=== PATIENT | male | born 1990 | race Caucasian/White ===

== ENCOUNTER 2017-06-21 19:32 | Emergency (ER) | payer SELFPAY ==
[2017-06-21] MEDS ORDERED: EPINEPHrine 1 MG/ML SDV IM ONE (19:42)
[2017-06-21] MEDS ORDERED: methylPREDNISolone Sodium Succinate 125 MG/2 ML SDV IVPUSH ONE (19:42)
--- NOTE | 2017-06-21 19:45 | EDM.PDOC ---
ED HPI GENERAL MEDICAL PROBLEM - General Chief Complaint: Allergic Reaction Stated Complaint: ALLERGIC REACTION BEE STING Time Seen by Provider: 06/21/17 19:42 - History of Present Illness INITIAL COMMENTS - FREE TEXT/NARRATIVE: HISTORY AND PHYSICAL: History of present illness: Patient 26-year-old male presents with a concern of acute allergic reaction secondary to bee sting he has periorbital edema and swelling of his lips and midface is no difficulty breathing difficulty swallowing no changes in his voice. He took Benadryl prior to arrival Review of systems: As per history of present illness and below otherwise all systems reviewed and negative. Past medical history: As per history of present illness and as reviewed below otherwise noncontributory. Surgical history: As per history of present illness and as reviewed below otherwise noncontributory. Social history: No reported history of drug or alcohol abuse. Family history: As per history of present illness and as reviewed below otherwise noncontributory. Physical exam: HEENT: Patient has moderate periorbital edema and swelling of his mid face and upper lip. There is no tongue swelling oropharynx is normal, normocephalic, pupils reactive, negative for conjunctival pallor or scleral icterus, mucous membranes moist, throat clear, neck supple, nontender, trachea midline. Lungs: Clear to auscultation, breath sounds equal bilaterally, chest nontender. Heart: S1S2, regular, negative for clicks, rubs, or JVD. Abdomen: Soft, nondistended, nontender. Negative for masses or hepatosplenomegaly. Negative for costovertebral tenderness. Pelvis: Stable nontender. Genitourinary: Deferred. Rectal: Deferred. Extremities: Atraumatic, negative for cords or calf pain. Neurovascular unremarkable. Neuro: Awake, alert, oriented. Cranial nerves II through XII unremarkable. Cerebellum unremarkable. Motor and sensory unremarkable throughout. Exam nonfocal. Diagnostics: None Therapeutics: Epi 0.3 intramuscular Solu-Medrol 125 mg IV Impression: #1 acute allergic reaction (bee sting) Definitive disposition and diagnosis as appropriate pending reevaluation and review of above. - Related Data Allergies Allergy/AdvReac Type Severity Reaction Status Date / Time insect venom Allergy Facial Verified 06/21/17 19:34 Swelling Home Meds: Home Meds . [No Known Home Meds] 01/13/15 [History] Past Medical History - Past Health History Medical/Surgical History: Denies Medical/Surgical History - Infectious Disease History Infectious Disease History: Reports: None Social & Family History - Family History Family Medical History: Noncontributory - Tobacco Use Smoking Status *Q: Never Smoker Second Hand Smoke Exposure: No - Alcohol Use Days Per Week of Alcohol Use: 7 Number of Drinks Per Day: 2 Total Drinks Per Week: 14 - Recreational Drug Use Recreational Drug Use: No Drug Use in Last 12 Months: No Recreational Drug Type: Reports: Cocaine, Ecstasy, Marijuana/Hashish Recreational Drug Use Frequency: Not Used In Over 1 Year Recreational Drug Last Use: 3 years ago ED ROS ALLERGIC REACTION - Review of Systems Review Of Systems: ROS reveals no pertinent complaints other than HPI. ED EXAM GENERAL NO PERIP PULSE - Physical Exam Exam: See Below (See dictation) Course - Vital Signs Last Recorded V/S: Last Vital Signs Temp 37.1 C 06/21/17 19:34 Pulse 124 H 06/21/17 19:34 Resp 18 06/21/17 19:34 BP 154/102 H 06/21/17 19:34 Pulse Ox 93 L 06/21/17 19:34 Departure - Departure Time of Disposition: 19:44 Disposition: Home, Self-Care 01 Condition: Good Clinical Impression: Allergic reaction to bee sting - Discharge Information Referrals: PCP,None [Primary Care Provider] - Additional Instructions: The following information is given to patients seen in the emergency department who are being discharged to home. This information is to outline your options for follow-up care. We provide all patients seen in our emergency department with a follow-up referral. The need for follow-up, as well as the timing and circumstances, are variable depending upon the specifics of your emergency department visit. If you don't have a primary care physician on staff, we will provide you with a referral. We always advise you to contact your personal physician following an emergency department visit to inform them of the circumstance of the visit and for follow-up with them and/or the need for any referrals to a consulting specialist. The emergency department will also refer you to a specialist when appropriate. This referral assures that you have the opportunity for followup care with a specialist. All of these measure are taken in an effort to provide you with optimal care, which includes your followup. Under all circumstances we always encourage you to contact your private physician who remains a resource for coordinating your care. When calling for followup care, please make the office aware that this follow-up is from your recent emergency room visit. If for any reason you are refused follow-up, please contact the [facility] emergency department at and asked to speak to the emergency department charge nurse. [facility] [place] [id number] EpiPen as directed Benadryl as directed Medrol Dosepak as prescribed follow-up primary medical doctor in the clinic above as discussed return as needed as discussed
[2017-06-21] MEDS ORDERED: EPINEPHrine 1 MG/1 ML Amp SUBCUT ONE (19:52)
[2017-06-21 20:17] VITALS: BP 116/75
== END 2017-06-21 20:31 | disposition home or self-care (01) ==
LOC: MW.ED 19:32
DX: T63.441A Toxic effect of venom of bees, accidental (unintentional), initial encounter (principal)
CPT/HCPCS: 96372; 96374; 99283; J0171; J2930; 99282

== ENCOUNTER 2019-02-05 10:35 | Emergency (ER) | payer MEDICAID, OTHER ==
--- NOTE | 2019-02-05 10:47 | EDM.PDOC ---
ED HPI GENERAL MEDICAL PROBLEM - General Chief Complaint: General Stated Complaint: MED CLEAR Time Seen by Provider: 02/05/19 10:36 Source of Information: Reports: Patient History Limitations: Reports: No Limitations - History of Present Illness INITIAL COMMENTS - FREE TEXT/NARRATIVE: HISTORY AND PHYSICAL: History of present illness: Patient is a 28-year-old male who presents to the emergency room with long enforcement for medical clearance. Patient states he has not taken his lisinopril in the past months. Law enforcement wanted him evaluated as he did have a traumatic head injury in September 2018 and is concerned as he has not been taking his prescribed medications. Patient currently is asymptomatic and offers no current complaints. Patient denies any fever, chills, headache, change in vision, syncope or near syncope. Denies any chest pain, back pain, shortness of breath or cough. Denies any abdominal pain, nausea, vomiting, diarrhea, constipation or dysuria. Has not noted any blood in urine or stool. Patient has been eating and drinking appropriately. Denies any alcohol or drug abuse. Review of systems: As per history of present illness and below otherwise all systems reviewed and negative. Past medical history: As per history of present illness and as reviewed below otherwise noncontributory. Surgical history: As per history of present illness and as reviewed below otherwise noncontributory. Social history: See social history for further information Family history: As per history of present illness and as reviewed below otherwise noncontributory. Physical exam: General: well-developed and well-nourished 28-year-old male. Alert and oriented. Nontoxic appearing and in no acute distress. HEENT: Atraumatic, normocephalic, pupils equal and reactive bilaterally, negative for conjunctival pallor or scleral icterus, mucous membranes moist, TMs normal bilaterally, throat clear, neck supple, nontender, trachea midline. No drooling or trismus noted. No meningeal signs. No hot potato voice noted. Lungs: Clear to auscultation, breath sounds equal bilaterally, chest nontender. Heart: S1S2, regular rate and rhythm without overt murmur Abdomen: Soft, nondistended, nontender. Negative for masses or hepatosplenomegaly. Negative for costovertebral tenderness. Pelvis: Stable nontender. Genitourinary: Deferred. Rectal: Deferred. Skin: Intact, warm, dry. No lesions or rashes noted. Extremities: Atraumatic, moves all extremities per self with difficulty or deficits, negative for cords or calf pain. Neurovascular unremarkable. Neuro: Awake, alert, oriented. Cranial nerves II through XII unremarkable. Cerebellum unremarkable. Motor and sensory unremarkable throughout. Exam nonfocal. Notes: Patient declines the need for a diagnostic evaluation. His physical exam is within normal limits. He is asymptomatic and offers no current complaints. I will give him a limited amount of his lisinopril until he is able to follow up with his primary care provider. Patient will be discharged to the custody of law enforcement. Supportive care measures were reviewed and discussed. Voices understanding and is agreeable to plan of care. Denies any further questions or concerns at this time. Diagnostics: Bedside Glucose Therapeutics: None Prescription: Lisinopril 10 (#20) Impression: Encounter for medical screening Medication refill Plan: 1. Please follow-up with your primary care provider for reevaluation and further management of your high blood pressure. Further medication refills will need to be done through them. 2. Return to the ED as needed and as discussed. Definitive disposition and diagnosis as appropriate pending reevaluation and review of above. - Related Data Allergies Allergy/AdvReac Type Severity Reaction Status Date / Time insect venom Allergy Facial Verified 02/05/19 10:37 Swelling Home Meds: Home Meds Lisinopril [Prinivil] 10 mg PO DAILY 30 Days #30 tablet 10/04/18 [Rx] Past Medical History - Past Health History Medical/Surgical History: Denies Medical/Surgical History HEENT History: Reports: None Cardiovascular History: Reports: Hypertension Respiratory History: Reports: None Gastrointestinal History: Reports: None Genitourinary History: Reports: None Musculoskeletal History: Reports: None Neurological History: Reports: Head Trauma, Seizure, Other (See Below) Other Neuro History: "brain bleed" Psychiatric History: Reports: None Endocrine/Metabolic History: Reports: None Hematologic History: Reports: None Immunologic History: Reports: None Oncologic (Cancer) History: Reports: None Dermatologic History: Reports: None - Infectious Disease History Infectious Disease History: Reports: None Other Infectious Disease History: unknown type of hepatitis - Past Surgical History Head Surgeries/Procedures: Reports: None HEENT Surgical History: Reports: None Cardiovascular Surgical History: Reports: None Respiratory Surgical History: Reports: None GI Surgical History: Reports: None Male Surgical History: Reports: None Endocrine Surgical History: Reports: None Neurological Surgical History: Reports: None Musculoskeletal Surgical History: Reports: None Oncologic Surgical History: Reports: None Dermatological Surgical History: Reports: None Social & Family History - Family History Family Medical History: Noncontributory Endocrine/Metabolic: Reports: Diabetes, type II - Tobacco Use Smoking Status *Q: Current Every Day Smoker Years of Tobacco use: 1 Packs/Tins Daily: 0.5 - Caffeine Use Caffeine Use: Reports: None Other Caffeine Use: states drinks soda only occasionally - Alcohol Use Days Per Week of Alcohol Use: 7 Number of Drinks Per Day: 6 Total Drinks Per Week: 42 - Recreational Drug Use Recreational Drug Use: No ED ROS GENERAL - Review of Systems Review Of Systems: ROS reveals no pertinent complaints other than HPI. ED EXAM, GENERAL - Physical Exam Exam: See Below (See dictation) Course - Vital Signs Last Recorded V/S: Last Vital Signs Temp 97.1 F 02/05/19 10:37 Pulse 93 02/05/19 10:37 Resp 18 02/05/19 10:37 BP 126/106 H 02/05/19 10:37 Pulse Ox 96 02/05/19 10:37 - Orders/Labs/Meds Orders: Active Orders 24 hr Category Date Time Status Blood Glucose Check, Bedside [RC] ONETIME Care 02/05/19 10:50 Active Departure - Departure Time of Disposition: 10:54 Disposition: Home, Self-Care 01 Clinical Impression: Encounter for medical screening examination, Medication refill - Discharge Information Referrals: PCP,Unknown [Primary Care Provider] - Forms: ED Department Discharge Additional Instructions: The following information is given to patients seen in the emergency department who are being discharged to home. This information is to outline your options for follow-up care. We provide all patients seen in our emergency department with a follow-up referral. The need for follow-up, as well as the timing and circumstances, are variable depending upon the specifics of your emergency department visit. If you don't have a primary care physician on staff, we will provide you with a referral. We always advise you to contact your personal physician following an emergency department visit to inform them of the circumstance of the visit and for follow-up with them and/or the need for any referrals to a consulting specialist. The emergency department will also refer you to a specialist when appropriate. This referral assures that you have the opportunity for follow-up care with a specialist. All of these measure are taken in an effort to provide you with optimal care, which includes your follow-up. Under all circumstances we always encourage you to contact your private physician who remains a resource for coordinating your care. When calling for follow-up care, please make the office aware that this follow-up is from your recent emergency room visit. If for any reason you are refused follow-up, please contact the [facility] Emergency Department at and asked to speak to the emergency department charge nurse. [facility] [address] [place] [id number] [facility] [address] [place] [id number] 1. Please follow-up with your primary care provider for reevaluation and further management of your high blood pressure. Further medication refills will need to be done through them. 2. Return to the ED as needed and as discussed. - My Orders Last 24 Hours: My Active Orders 02/05/19 10:50 Blood Glucose Check, Bedside [RC] ONETIME - Assessment/Plan Last 24 Hours: My Active Orders 02/05/19 10:50 Blood Glucose Check, Bedside [RC] ONETIME
[2019-02-05 11:01] VITALS: BP 144/101
== END 2019-02-05 11:01 | disposition home or self-care (01) ==
LOC: MW.ED 10:35
DX: Z76.0 Encounter for issue of repeat prescription (principal); I10 Essential (primary) hypertension; Z79.899 Other long term (current) drug therapy; Z91.048 Other nonmedicinal substance allergy status
CPT/HCPCS: 82962; 99283

== ENCOUNTER 2019-02-08 04:40 | Emergency (ER) | payer MEDICAID, OTHER ==
[2019-02-08] MEDS ORDERED: Sodium Chloride 0.9% 1,000 ML IV ONE (04:44)
[2019-02-08] MEDS ORDERED: LORazepam 2 MG/ML SDV IVPUSH ONE ×2 (04:44→04:55)
[2019-02-08] MEDS ORDERED: LORazepam 2 MG/ML SDV ONE ×2 (04:45→04:57)
[2019-02-08] MEDS ORDERED: MVI, Adult with Vitamin K 10 ML, Thiamine 100 MG, Folic Acid 1 MG in Sodium Chloride 0.... IV ONE ×4 (04:45)
[2019-02-08] MEDS ORDERED: cefTRIAXone 2 GM in Premix Bag 1 BAG IV ONE (04:46)
[2019-02-08] MEDS ORDERED: Acyclovir 500 MG/10 ML SDV IV ONE (04:48)
--- NOTE | 2019-02-08 04:58 | EDM.PDOC ---
ED HPI GENERAL MEDICAL PROBLEM - General Stated Complaint: PSYCHOSIS/OVERDOSE Time Seen by Provider: 02/08/19 04:43 - History of Present Illness INITIAL COMMENTS - FREE TEXT/NARRATIVE: HISTORY AND PHYSICAL: History of present illness: Patient's 28-year-old male history of alcohol abuse who presents 3 days status post incarceration with altered mental status confused described as delirious per paramedics on arrival here is tachycardic with a heart rate 168 temperature of 103 blood pressure 120/70 respirations of 32 he is also here is clearly confused on arrival. There've been no reported trauma no other reported available history. Review of systems: As per history of present illness and below otherwise all systems reviewed and negative. Past medical history: As per history of present illness and as reviewed below otherwise noncontributory. Surgical history: As per history of present illness and as reviewed below otherwise noncontributory. Social history: No reported history of drug or alcohol abuse. Family history: As per history of present illness and as reviewed below otherwise noncontributory. Physical exam: HEENT: Atraumatic, normocephalic, pupils reactive, negative for conjunctival pallor or scleral icterus, mucous membranes moist, throat clear, neck supple, nontender, trachea midline. Lungs: Clear to auscultation, breath sounds equal bilaterally, chest nontender. Heart: S1S2, regular, tachycardic . Abdomen: Soft, nondistended, nontender. Pelvis: Stable nontender. Genitourinary: Deferred. Rectal: Deferred. Extremities: Atraumatic, negative for cords or calf pain. Neurovascular unremarkable. Neuro: Awake, confused moves all extremities limited but grossly nonfocal exam Diagnostics: CBC CMP troponin PT/INR UA UDS EtOH chest x-ray CT brain blood culture 2 ABG ammonia level Therapeutics: Saline 1 L bolus banana bag at 150 an hour Ativan 2 mg IV Rocephin 2 g IV acyclovir 900 mg IV Impression: #1 altered mental status #2 fever #3 history of alcohol abuse with withdrawal Definitive disposition and diagnosis as appropriate pending reevaluation and review of above. - Related Data Allergies Allergy/AdvReac Type Severity Reaction Status Date / Time insect venom Allergy Facial Verified 02/08/19 04:42 Swelling Home Meds: Home Meds Lisinopril [Prinivil] 10 mg PO DAILY 30 Days #30 tablet 10/04/18 [Rx] Past Medical History - Past Health History Medical/Surgical History: Denies Medical/Surgical History HEENT History: Reports: None Cardiovascular History: Reports: Hypertension Respiratory History: Reports: None Gastrointestinal History: Reports: None Genitourinary History: Reports: None Musculoskeletal History: Reports: None Neurological History: Reports: Head Trauma, Seizure, Other (See Below) Other Neuro History: "brain bleed" Psychiatric History: Reports: None Endocrine/Metabolic History: Reports: None Hematologic History: Reports: None Immunologic History: Reports: None Oncologic (Cancer) History: Reports: None Dermatologic History: Reports: None - Infectious Disease History Infectious Disease History: Reports: None Other Infectious Disease History: unknown type of hepatitis - Past Surgical History Head Surgeries/Procedures: Reports: None HEENT Surgical History: Reports: None Cardiovascular Surgical History: Reports: None Respiratory Surgical History: Reports: None GI Surgical History: Reports: None Male Surgical History: Reports: None Endocrine Surgical History: Reports: None Neurological Surgical History: Reports: None Musculoskeletal Surgical History: Reports: None Oncologic Surgical History: Reports: None Dermatological Surgical History: Reports: None Social & Family History - Family History Family Medical History: Noncontributory Endocrine/Metabolic: Reports: Diabetes, type II - Caffeine Use Caffeine Use: Reports: None Other Caffeine Use: states drinks soda only occasionally ED ROS GENERAL - Review of Systems Review Of Systems: ROS reveals no pertinent complaints other than HPI. ED EXAM, GENERAL - Physical Exam Exam: See Below (See dictation) Course - Orders/Labs/Meds Orders: Active Orders 24 hr Category Date Time Status Cardiac Monitoring [RC] . DIRECTED Care 02/08/19 04:43 Active EKG Documentation Completion [RC] STAT Care 02/08/19 04:43 Active Pulse Oximetry [RC] ASDIRECTED Care 02/08/19 04:43 Active Chest 1V Frontal [CR] Stat Exams 02/08/19 04:44 Ordered Head wo Cont [CT] Stat Exams 02/08/19 04:44 Ordered AMMONIA VENOUS [CHEM] Stat Lab 02/08/19 04:43 Ordered BLOOD GAS ARTERIAL [BG] Stat Lab 02/08/19 04:43 Ordered CBC WITH AUTO DIFF [HEME] Stat Lab 02/08/19 04:43 Ordered COMPREHENSIVE METABOLIC PN,CMP [CHEM] Stat Lab 02/08/19 04:43 Ordered CULTURE BLOOD [BC] Stat Lab 02/08/19 04:45 Ordered CULTURE BLOOD [BC] Stat Lab 02/08/19 04:45 Ordered DRUG SCREEN, URINE [URCHEM] Stat Lab 02/08/19 04:44 Ordered ETHANOL BLOOD MEDICAL [CHEM] Stat Lab 02/08/19 04:43 Ordered INR,PT,PROTHROMBIN TIME [COAG] Stat Lab 02/08/19 04:43 Ordered TROPONIN I [CHEM] Stat Lab 02/08/19 04:43 Ordered TSH [CHEM] Stat Lab 02/08/19 04:43 Ordered UA RFX DEE AND CULT IF INDIC [URIN] Stat Lab 02/08/19 04:44 Ordered MVI, Adult with Vitamin K [Infuvite Adult] 10 ml Med 02/08/19 04:45 Active Thiamine [Vitamin B-1] 100 mg Folic Acid 1 mg Sodium Chloride 0.9% [Normal Saline] 1,000 ml IV ONETIME Sodium Chloride 0.9% [Normal Saline] 1,000 ml Med 02/08/19 04:44 Active IV STAT cefTRIAXone [Rocephin in Dextrose,Iso-Osm 2 GM/50 ML] 2 Med 02/08/19 04:46 Active gm Premix Bag 1 bag IV ONETIME Blood Culture x2 Reflex Set [OM.PC] Stat Oth 02/08/19 04:44 Ordered Medication Orders Multivitamins/Minerals 10 ml/Thiamine HCl 100 mg/ Folic Acid 1 mg/ Sodium Chloride 1,011.2 mls @ 150 mls/hr IV ONETIME ONE Stop: 02/08/19 11:29 Sodium Chloride (Normal Saline) 1,000 mls @ 999 mls/hr IV STAT ONE Stop: 02/08/19 05:44 Last Admin: 02/08/19 04:51 Dose: 999 mls/hr Ceftriaxone Sodium/Dextrose 2 (gm/ Premix) 50 mls @ 100 mls/hr IV ONETIME ONE Stop: 02/08/19 05:15 Meds: Medications Generic Name Dose Route Start Last Admin Trade Name Freq PRN Reason Stop Dose Admin Multivitamins/Minerals 10 ml/ 1,011.2 mls @ 150 mls/hr 02/08/19 04:45 Thiamine HCl 100 mg/ Folic IV 02/08/19 11:29 Acid 1 mg/ Sodium Chloride ONETIME ONE Sodium Chloride 1,000 mls @ 999 mls/hr 02/08/19 04:44 02/08/19 04:51 Normal Saline IV 02/08/19 05:44 999 mls/hr STAT ONE Administration Ceftriaxone Sodium/Dextrose 2 50 mls @ 100 mls/hr 02/08/19 04:46 gm/ Premix IV 02/08/19 05:15 ONETIME ONE Discontinued Medications Generic Name Dose Route Start Last Admin Trade Name Kenny PRN Reason Stop Dose Admin Acyclovir 900 mg 02/08/19 04:48 Zovirax IV 02/08/19 04:49 NOW ONE Lorazepam 2 mg 02/08/19 04:44 02/08/19 04:48 Ativan IVPUSH 02/08/19 04:45 2 mg ONETIME ONE Administration Lorazepam Confirm 02/08/19 04:45 Ativan Administered 02/08/19 04:46 Dose 2 mg .ROUTE .STK-MED ONE Departure - Departure Time of Disposition: 04:57 Disposition: DC/Tfer to Acute Hospital 02 Condition: Serious Clinical Impression: Altered mental status, Fever, Alcohol abuse, Alcohol withdrawal - Discharge Information Referrals: PCP,None [Primary Care Provider] - - My Orders Last 24 Hours: My Active Orders 02/08/19 04:43 Cardiac Monitoring [RC] . DIRECTED EKG Documentation Completion [RC] STAT Pulse Oximetry [RC] ASDIRECTED AMMONIA VENOUS [CHEM] Stat BLOOD GAS ARTERIAL [BG] Stat CBC WITH AUTO DIFF [HEME] Stat COMPREHENSIVE METABOLIC PN,CMP [CHEM] Stat ETHANOL BLOOD MEDICAL [CHEM] Stat INR,PT,PROTHROMBIN TIME [COAG] Stat TROPONIN I [CHEM] Stat TSH [CHEM] Stat 02/08/19 04:44 Chest 1V Frontal [CR] Stat Head wo Cont [CT] Stat DRUG SCREEN, URINE [URCHEM] Stat UA RFX DEE AND CULT IF INDIC [URIN] Stat Sodium Chloride 0.9% [Normal Saline] 1,000 ml IV STAT Blood Culture x2 Reflex Set [OM.PC] Stat 02/08/19 04:45 CULTURE BLOOD [BC] Stat CULTURE BLOOD [BC] Stat MVI, Adult with Vitamin K [Infuvite Adult] 10 ml Thiamine [Vitamin B-1] 100 mg Folic Acid 1 mg Sodium Chloride 0.9% [Normal Saline] 1,000 ml IV ONETIME 02/08/19 04:46 cefTRIAXone [Rocephin in Dextrose,Iso-Osm 2 GM/50 ML] 2 gm Premix Bag 1 bag IV ONETIME - Assessment/Plan Last 24 Hours: My Active Orders 02/08/19 04:43 Cardiac Monitoring [RC] . DIRECTED EKG Documentation Completion [RC] STAT Pulse Oximetry [RC] ASDIRECTED AMMONIA VENOUS [CHEM] Stat BLOOD GAS ARTERIAL [BG] Stat CBC WITH AUTO DIFF [HEME] Stat COMPREHENSIVE METABOLIC PN,CMP [CHEM] Stat ETHANOL BLOOD MEDICAL [CHEM] Stat INR,PT,PROTHROMBIN TIME [COAG] Stat TROPONIN I [CHEM] Stat TSH [CHEM] Stat 02/08/19 04:44 Chest 1V Frontal [CR] Stat Head wo Cont [CT] Stat DRUG SCREEN, URINE [URCHEM] Stat UA RFX DEE AND CULT IF INDIC [URIN] Stat Sodium Chloride 0.9% [Normal Saline] 1,000 ml IV STAT Blood Culture x2 Reflex Set [OM.PC] Stat 02/08/19 04:45 CULTURE BLOOD [BC] Stat CULTURE BLOOD [BC] Stat MVI, Adult with Vitamin K [Infuvite Adult] 10 ml Thiamine [Vitamin B-1] 100 mg Folic Acid 1 mg Sodium Chloride 0.9% [Normal Saline] 1,000 ml IV ONETIME 02/08/19 04:46 cefTRIAXone [Rocephin in Dextrose,Iso-Osm 2 GM/50 ML] 2 gm Premix Bag 1 bag IV ONETIME
--- NOTE | 2019-02-08 05:26 | CR ---
INDICATION: Withdrawal. Dyspnea and tachycardia. TECHNIQUE: Chest 1 views COMPARISON: Chest x-ray 10/02/2018 FINDINGS: Cardiovascular and mediastinum: Heart size and vasculature are normal in caliber and appearance. Lungs and pleural spaces: Lungs are clear. No sign of infiltrate or mass. No sign of pleural effusion. No pneumothorax. Bones and soft tissues: No significant findings. IMPRESSION: No acute findings and no significant changes from the prior exam. Dictated by Pepe Reza MD @ Feb 08 2019 5:24AM Signed by Dr. Pepe Reza @ Feb 08 2019 5:25AM
[2019-02-08 05:53] LABS: CHLORIDE,CL 99 mmol/L (98-107); SODIUM,NA 137 mmol/L (136-148)
[2019-02-08 06:14] VITALS: BP 100/80
== END 2019-02-08 05:55 ==
LOC: MW.ED 04:40
DX: F10.239 Alcohol dependence with withdrawal, unspecified (principal); I10 Essential (primary) hypertension; Z91.09 Other allergy status, other than to drugs and biological substances; Z79.899 Other long term (current) drug therapy
CPT/HCPCS: 36415; 36600; 71045; 80053; 80305; 81001; 82140; 82803; 84443; 84484; 85025; 85610; 87040; 93005; 96365; 96375; 99285; G0480; J0133; J0696; J2060; J3411; J7040; 99284